=== PATIENT | female | born 1980 | race African-American/Black ===

== ENCOUNTER 2022-05-03 08:07 | Outpatient (CLI) | payer BC | END 2022-05-03 08:08 | disposition home or self-care (01) | LOC: CSHMAMMO 08:07 | PROVIDERS: ATTEND Obstetrics & Gynecology | DX: Z12.31 Encounter for screening mammogram for malignant neoplasm of breast (principal); N63.11 Unspecified lump in the right breast, upper outer quadrant | CPT/HCPCS: 77063; 77067 ==